=== PATIENT | male | born 1945 | race Caucasian/White ===

== ENCOUNTER 2017-02-08 05:56 | Day surgery (SDC) | payer OTHER ==
--- NOTE | ~2017-02-08 | EGD ---
EGD REPORT [facility] [address] [address] NAME: WAYLON ROONEY : [birth year] STATUS : REG [facility]#: [id number] AGE: 71 ADM/REG DATE : 02/08/17 MR#: [id number] REPORT SERV DATE: 02/08/17 DICTATED BY: WAYLON DAWSON DATE: 02/08/17 REPORT STATUS : Draft TRANSCRIBED BY: [employer] DATE: 02/08/17 [facility] Patient Name: Waylon Rooney Date of : 1945 Attending MD: WAYLON DAWSON MD Procedure Date No Time: 02/08/2017 Procedure: Colonoscopy Indications: High risk colon cancer surveillance: Personal history of colonic polyps Referring MD: AJ DAMON Medicines: as per anesthesia Complications: No immediate complications. Procedure: Pre-Anesthesia Assessment: - ASA Grade Assessment: II - A patient with mild systemic disease. After I obtained informed consent, the scope was passed under direct vision. Throughout the procedure, the patient's blood pressure, pulse, and oxygen saturations were monitored continuously. The PCF [id number] was introduced through the anus and advanced to the cecum, identified by appendiceal orifice and ileocecal valve. The colonoscopy was performed without difficulty. The patient tolerated the procedure well. The quality of the bowel preparation was adequate to identify polyps. Findings: The perianal and digital rectal examinations were normal. Many small and large-mouthed diverticula were found in the sigmoid colon, in the descending colon and in the transverse colon. Internal hemorrhoids were found during endoscopy and were mild. Impression: - Diverticulosis in the sigmoid colon, in the descending colon and in the transverse colon. - Internal hemorrhoids. Recommendation: - Repeat colonoscopy in 5 years for surveillance. Procedure Code(s): --- Professional --- 73633, Colonoscopy, flexible, proximal to splenic flexure; diagnostic, with or without collection of specimen(s) by brushing or washing, with or without colon decompression (separate procedure) Diagnosis Code(s): --- Professional --- K64.8, Other hemorrhoids EGD REPORT [facility] [address] [facility] [address] [address] NAME: WAYLON ROONEY : [birth year] [place]US [place] [facility] [place]#: [id number] AGE: 71 ADM/REG DATE : 02/08/17 MR#: [id number] REPORT SERV DATE: 02/08/17 DICTATED BY: WAYLON DAWSON. DATE: 02/08/17 REPORT STATUS : Draft TRANSCRIBED BY: [employer] DATE: 02/08/17 K57.30, Diverticulosis of large intestine without perforation or abscess without bleeding Z86.010, Personal history of colonic polyps CPT copyright 2013 [employer]. All rights reserved. The codes documented in this report are preliminary and upon audit control clerk review may be revised to meet current compliance requirements. WAYLON DAWSON MD 02/08/2017 7:32 AM This report has been signed electronically. Number of Addenda: 0 Note Initiated On: 02/08/2017 7:04 AM Scope Withdrawal Time 0 hours 6 minutes 24 seconds [id number] [facility] [id number]
[~2017-02-08 05:56] MED LIST: LOTREL1 CA4 PO; NIASPAN500 PO; SYN125 PO; TIMOLOL MAL0.5 % OPH
== END 2017-02-08 23:59 | disposition home or self-care (01) ==
LOC: DMU 05:56
PROVIDERS: Internal Medicine Gastroenterology
PROC: 0DJD8ZZ Inspection of Lower Intestinal Tract, Via Natural or Artificial Opening Endoscopic (ICD-10-PCS; principal; 2017-02-08 07:30)
DX: K64.8 Other hemorrhoids (principal); K57.30 Diverticulosis of large intestine without perforation or abscess without bleeding; M19.90 Unspecified osteoarthritis, unspecified site; E03.9 Hypothyroidism, unspecified; E78.00 Pure hypercholesterolemia, unspecified; I10 Essential (primary) hypertension; Z86.010 Personal history of colon polyps; Z79.899 Other long term (current) drug therapy; Z98.890 Other specified postprocedural states; Z98.52 Vasectomy status